=== PATIENT | female | born 1945 | race Caucasian/White ===

== ENCOUNTER → 2017-06-16 | Outpatient (CLI) | payer MEDICARE, BC ==
--- NOTE | 2017-06-16 23:03 | MR ---
EXAMINATION TYPE: MR lumbar spine wo con DATE OF EXAM: 06/16/2017 COMPARISON: NONE HISTORY: Low Back Pain, Swelling of Feet for many months TECHNIQUE: Multiplanar, multisequence images of the lumbar spine were acquired. The lumbar vertebra have normal alignment. There is narrowing and decreased signal in the disc throug hout the lumbar spine and more severe at L5-S1. There is rudimentary disc at S1-S2. Sacroiliac joints appear intact. There is no lumbar paraspinal mass. There is no compression fracture. There are poste rior mild central disc herniations at L3-4 and L4-5. There is hypertrophic facet arthropathy with spi nal stenosis and lateral recess stenosis at L3-4. There is mild hypertrophic facet arthropathy at L4- 5. Lumbar nerve roots appear normal. The neural foramina are fairly well maintained. IMPRESSION: Multilevel spondylosis. Facet arthropathy and posterior disc herniation at L3-4 with a mild relative spinal stenosis. No fracture.
== END | disposition home or self-care (01) ==
LOC: RADMRIMAIN 18:13
PROVIDERS: ATTEND Nurse Practitioner Family
DX: M51.26 Other intervertebral disc displacement, lumbar region (principal); M99.73 Connective tissue and disc stenosis of intervertebral foramina of lumbar region; M47.816 Spondylosis without myelopathy or radiculopathy, lumbar region
CPT/HCPCS: 72148

== ENCOUNTER → 2017-10-07 | Outpatient (CLI) | payer MEDICARE, BC ==
[2017-10-07 12:49] LABS: Basophils % (A) 1 %; CH 32.1; CHCM 32.2; Eosinophils # (A) 0.1 k/uL (0-0.7); Eosinophils % (A) 1 %; HCT 40.2 % (34.0-46.0); HDW 2.29; HGB 13.5 gm/dL (11.4-16.0); Luc # (Auto) 0.14; Luc % (Auto) 4; Lymphocytes # (A) 1.5 k/uL (1.0-4.8); Lymphocytes % (A) 38 %; MCH 33.6 pg (25.0-35.0); MCHC 33.5 g/dL (31.0-37.0); MCV 100.3 fL (80.0-100.0); Macrocytosis Slight; Mean Platelet Volume 7.6; Monocytes # (A) 0.4 k/uL (0-1.0); Monocytes % (A) 11 %; Neutrophils # (A) 1.8 k/uL (1.3-7.7); Neutrophils % (A) 46 %; RBC 4.01 m/uL (3.80-5.40); RDW 14.7 % (11.5-15.5); WBC 3.9 k/uL (3.8-10.6); WBC (Perox) 4.01
== END | disposition home or self-care (01) ==
LOC: LABPAT 12:08
PROVIDERS: ATTEND Obstetrics & Gynecology Obstetrics
DX: Z01.810 Encounter for preprocedural cardiovascular examination (principal); Z01.812 Encounter for preprocedural laboratory examination; N84.0 Polyp of corpus uteri
CPT/HCPCS: 36415; 85025; 93005

== ENCOUNTER 2017-10-13 10:45 | Day surgery (SDC) | payer MEDICARE, BC ==
[2017-10-12 08:50] VITALS: BMI 29.6
[~2017-10-13 10:45] MED LIST: DEXAMETHASONE SOD PHOSPHATE 10 MG/ML 1 ML VIAL IV ONE; HYDROmorphone 0.5 MG/0.5 ML SYRINGE IVP PRN; LACTATED RINGERS 1,000 ML IV SCH; ONDANSETRON 4 MG/2 ML VIAL IVP ONE; Pre Op ABX Message 1 EACH MISC MISCELLANE ONE
[2017-10-13] MEDS ORDERED: fentaNYL (PF) 50 MCG/ML 2 ML AMP ONE (12:42)
[2017-10-13] MEDS ORDERED: LIDOCAINE 1% INJ 10MG/ML (20 ML MDV) ONE (12:42)
[2017-10-13] MEDS ORDERED: PROPOFOL 10 MG/ML 20 ML VIAL IV ONE (12:42)
[2017-10-13] MEDS ORDERED: MIDAZOLAM 2 MG/2 ML VIAL ONE (12:42)
[2017-10-13] MEDS ORDERED: KETOROLAC 30 MG/ML 1 ML VIAL ONE (12:42)
[2017-10-13] MEDS ORDERED: Acetaminophen-Codeine 300-30mg TAB PO PRN (12:44)
--- NOTE | 2017-10-13 13:05 | P.OP ---
Date of Procedure: 10/13/17 Preoperative Diagnosis: thickened endometrial lining, fluid and polyp noted Postoperative Diagnosis: same Anesthesia: MAC Surgeon: Celina De Leon Estimated Blood Loss (ml): 0 IV fluids (ml): 600 Urine output (ml): 50 Pathology: other (endometrial currettings) Condition: stable Disposition: PACU Indications for Procedure: thickened endometrium with fluid and suspected polyp. Operative Findings: endometrial fluid, right crnual polyp vs fibroid. Description of Procedure: Patient was taken the operating room after informed consent was obtained by myself. She was prepped and draped in normal sterile fashion after general anesthesia was obtained by the anesthesia department. A red rubber catheter was used to drain the bladder of clear yellow urine. A weighted speculum placed in the posterior vaginal vault the anterior lip the cervix was visualized and grasped with a single-tooth tenaculum. Endocervical canal was then dilated to approximately 15-Divehi. The endometrial cavity was then visualized with the hysteroscope and endometrial fluid/cloudiness to the endometrial cavity despite fluid distention. Intact cavity was noted with bubbles of the endometrial cavity. A small polyp versus fibroid was noted on the patient's left cornual area. A sharp curettage was then performed until a gritty texture was noted in all 4 quadrants of the endometrial cavity. This specimen wasn't sent to pathology for analysis. All ligaments were then removed from the patient's vaginal vault the single-tooth tenaculum was removed from the anterior lip of the cervix and hemostasis was appreciated. All counts are correct 2 patient was then taken the recovery room awake and in stable condition
[2017-10-13 13:30] VITALS: TEMP 97.2
[2017-10-13] MEDS ORDERED: LACTATED RINGERS 1,000 ML IV ONE (13:48)
[2017-10-13 14:24] VITALS: BP 153/85; PULSE 77; RESP 16
== END 2017-10-13 14:45 | disposition home or self-care (01) ==
LOC: OR 10:45
PROVIDERS: ATTEND Obstetrics & Gynecology Obstetrics
DX: N88.8 Other specified noninflammatory disorders of cervix uteri (principal); N84.0 Polyp of corpus uteri; Z88.5 Allergy status to narcotic agent; Z88.0 Allergy status to penicillin; Z91.013 Allergy to seafood
CPT/HCPCS: 88305; 58558; J2250; J1100; J2405; J2001; J3010; J1885; J2704

== ENCOUNTER → 2018-11-03 | Outpatient (CLI) | payer MEDICARE, BC ==
--- NOTE | 2018-11-03 16:56 | MR ---
MRI CERVICAL SPINE AND THORACIC SPINE WITHOUT CONTRAST: 11/03/2018 CLINICAL HISTORY: Neck and back pain TECHNIQUE: Multiplanar, multisequence imaging of the cervical spine and thoracic is performed without intravenous contrast. COMPARISON: None FINDINGS: There is reversal of the usual cervical lordosis in the cervical thoracic junction. There is grade 1 anterolisthesis of C5 on C6, likely on a degenerative basis. Multilevel disc desiccation is seen. The visualized portions of posterior fossa are grossly unremarkable. Bone marrow signal is within normal limits. Vertebral body heights are maintained. Cervical cord signal is within normal limits. C2-C3: No significant disc disease, spinal canal stenosis nor neural foraminal narrowing. C3-C4: There is a broad-based disc bulge that is left eccentric with uncovertebral hypertrophy creati ng mild left neural foraminal narrowing. No significant spinal canal stenosis or right neural foramin al narrowing. Ligamentum flavum buckling is noted. C4-C5: There is facet arthropathy and uncovertebral hypertrophy with a broad-based disc bulge creatin g mild bilateral neural foraminal narrowing and minimally narrowing the ventral subarachnoid space wi thout significant spinal canal stenosis. C5-C6: There is disc uncovering and a broad-based disc bulge with uncovertebral hypertrophy and facet arthropathy resulting in severe right and moderate left neural foraminal narrowing and mild spinal c anal stenosis. C6-C7: There is a broad-based disc bulge and facet arthropathy resulting in moderate left neural fora meño narrowing. Right neural foramen appears patent as does the spinal canal. C7-T1: No significant disc disease is seen although there is disc desiccation. There is mild (grade 1 ) anterolisthesis of C7 on T1 with disc uncovering. No spinal canal stenosis or neural foraminal narr owing. T1-T2: No significant disc disease, spinal canal stenosis or neural foraminal narrowing. T2-T3: There is a broad-based disc bulge resulting in minimal bilateral neural foraminal narrowing. T3-T4: There is a broad-based disc bulge without spinal canal stenosis or significant neural foramina l narrowing. T4-T5: There is a small broad-based disc bulge without significant spinal canal stenosis nor neural f oraminal narrowing. T5-T6: No significant disc disease, spinal canal stenosis nor neural foraminal narrowing. T6-T7: Small broad-based disc bulge without spinal canal stenosis nor neural foraminal narrowing. T7-T8: Disc desiccation without spinal canal stenosis nor neural foraminal narrowing. T8-T9: There is a small broad-based disc bulge resulting in minimal bilateral neural foraminal narrow ing. No spinal canal stenosis. T9-T10: There is a small broad-based disc bulge resulting in mild bilateral neural foraminal narrowin g without spinal canal stenosis. T10-T11: There is a small right paracentral disc herniation extending into the neural foramen creatin g mild right neural foraminal narrowing. Left neural foramen and spinal canal are overall patent. T11-T12: There is a broad-based disc bulge resulting in minimal bilateral neural foraminal narrowing. No spinal canal stenosis. T12-L1: There is a broad-based disc bulge and disc desiccation without spinal canal stenosis nor neur al foraminal narrowing. The thoracic spinal cord signal is grossly unremarkable. Bone marrow signal is slightly heterogenous secondary to discogenic change. Anterior osteophytes are seen throughout with multilevel facet arthro keyanna. The thyroid gland is diffusely heterogenous. No vertebral body height loss within the cervical or thoracic spine. No malalignment within the thoracic spine. IMPRESSION: 1. Grade 1 anterolisthesis of C5 on C6 and C7 on T1, both likely on a degenerative basis. No vertebra l body height loss of the thoracic or cervical spine. 2. Small right paracentral disc herniation at T10 and T11 resulting in mild right neural foraminal na rrowing. No spinal canal stenosis at this level. 3. Moderate multilevel degenerative disc disease throughout the cervical and thoracic spine with vari able degrees of neural foraminal narrowing as described above. Mild spinal canal stenosis is seen foc ally at C5-C6.
== END | disposition home or self-care (01) ==
LOC: RADMRIMAIN 12:34
PROVIDERS: ATTEND Medical Genetics Clinical Genetics (M.D.)
DX: M48.02 Spinal stenosis, cervical region (principal); M99.71 Connective tissue and disc stenosis of intervertebral foramina of cervical region; M51.24 Other intervertebral disc displacement, thoracic region; M50.10 Cervical disc disorder with radiculopathy, unspecified cervical region; M51.34 Other intervertebral disc degeneration, thoracic region; M43.13 Spondylolisthesis, cervicothoracic region
CPT/HCPCS: 72141; 72146

== ENCOUNTER → 2019-07-05 | Outpatient (CLI) | payer MEDICARE, BC ==
--- NOTE | 2019-07-05 14:13 | MR ---
EXAMINATION TYPE: MR knee RT wo con DATE OF EXAM: 07/05/2019 COMPARISON: No correlative exams are available. HISTORY: 74-year-old female Right knee pain / Lateral joint pain TECHNIQUE: Multiplanar, multisequence imaging of the right knee is performed without IV contrast. FINDINGS: There is a right total knee arthroplasty. The 3 Sparkle magnet exacerbates the metal hardware artifact despite the use of cyst or sequences in place of the fat saturation sequences. Extensor mechanism is intact. There is a moderate underlying joint effusion and a small, multilocular Allen cyst measuring 1.6 x 4. 3 cm. The conjoined tendon appears intact. The lateral collateral ligament and iliotibial band appear to be grossly intact. Mild generalized muscular atrophy. Some centrally located marrow signal changes within the intramedul liz space of the distal femur probably sequela of patient's surgery. Bone infarct is also a possibil ity. The former is favored. The mid MCL is obscured by metal artifact. The proximal and distal portions appear intact. Normal popliteal artery anatomy. IMPRESSION: 1. Limited exam due to artifact from the patient's right total knee arthroplasty. 2. Moderate knee joint effusion and a small multilocular Allen's cyst measuring 4.3 cm. 3. Some elongated marrow signal changes located centrally within the intramedullary space of the dist al femur probably sequela of patient's knee replacement surgery. Bone infarct is considered less like ly.
== END ==
LOC: RADMRIMAIN 12:57
PROVIDERS: ATTEND General Practice
DX: M71.21 Synovial cyst of popliteal space [Baker], right knee (principal); M25.461 Effusion, right knee; R93.7 Abnormal findings on diagnostic imaging of other parts of musculoskeletal system; Z96.651 Presence of right artificial knee joint